=== PATIENT | male | born 1940 | race Caucasian/White ===

== ENCOUNTER 2021-08-18 10:47 | Emergency (ER) | payer MEDICARE ==
[~2021-08-18] VITALS: Ht 165.1 cm; Wt 86.0 kg
[2021-08-18 11:06] VITALS: BP 119/63
[2021-08-18 11:44] LABS: URINE BLOOD DIPSTICK LARGE (NEGATIVE); URINE GLUCOSE - DIPSTICK NEGATIVE (NEGATIVE); URINE KETONE NEGATIVE (NEGATIVE); URINE LEUK ESTERASE NEGATIVE (Negative); URINE NITRITE - DIPSTICK NEGATIVE (Negative); URINE PH 5.5 (4.5-8.0); URINE PROTEIN - DIPSTICK 30 mg/dL (NEG-TRACE); URINE UROBILINOGEN - DIPSTICK 0.2 E.U./dL (0.2)
[2021-08-18 11:46] LABS: URINE BILIRUBIN - DIPSTICK SMALL (NEGATIVE); URINE CLARITY TURBID; URINE COLOR BROWN
[2021-08-18 11:47] LABS: URINE RBC 50-100 RBC/hpf (0-5)
[2021-08-18 12:56] LABS: HEMATOCRIT 44.8 % (39.0-50.0); HEMOGLOBIN 14.6 g/dl (14.0-18.0); IMMATURE GRANULOCYTES 0.2 % (0.0-5.0); MEAN CORPUSCULAR HGB 31.6 pG CALC (26.0-32.0); MEAN CORPUSCULAR HGB CONC 32.6 g/dL CAL (32.0-36.0); NEUT# 7.38 thou/uL (1.82-7.42); RED BLOOD COUNT 4.62 mill/uL (4.70-6.10); RED CELL DISTRI WIDTH 12.7 % (11.5-15.5)
[2021-08-18 13:10] LABS: ALBUMIN 4.9 g/dL (3.2-5.0); BILIRUBIN, TOTAL 0.5 mg/dL (0.0-1.4); CREATININE 1.5 mg/dL (0.7-1.3); POTASSIUM 4.3 mmol/l (3.5-5.1); TOTAL PROTEIN 9.5 g/dL (6.3-8.2)
[2021-08-18] MEDS ORDERED: OMNICEF300 M1 PO ×2 (14:02→14:03)
[2021-08-18] MEDS ORDERED: ATORVASTATIN CA10 MG PO (14:13)
[2021-08-18] MEDS ORDERED: LEVOTHYROXIN50 MC1 PO (14:14)
[2021-08-18] MEDS ORDERED: CORDARONE/200 MG/TAB PO (14:16)
[2021-08-18] MEDS ORDERED: CORDARONE/PACE100 MG PO (14:17)
[2021-08-18] MEDS ORDERED: ENTRESTO 24-261 TAB PO (14:19)
[2021-08-18] MEDS ORDERED: XARELTO20 MG PO (14:20)
[2021-08-18 14:24] VITALS: BP 119/63
== END 2021-08-18 14:24 | disposition home or self-care (01) ==
LOC: ED 10:47
PROVIDERS: Family Medicine
DX: R31.9 Hematuria, unspecified (principal); I51.89 Other ill-defined heart diseases; E07.9 Disorder of thyroid, unspecified; Z79.01 Long term (current) use of anticoagulants